=== PATIENT | female | born 1990 | race Hispanic/Latino ===

== ENCOUNTER 2023-06-07 13:36 | Emergency (ER) | payer SELFPAY ==
--- NOTE | 2023-06-07 13:39 | ED.BACK ---
HPI - Back Pain/Injury General Chief Complaint: Back Pain/Injury Stated Complaint: leg pain,back pain,lower abdominal pain left side Time Seen by Provider: 06/07/23 13:39 Source: patient Mode of arrival: ambulatory Limitations: no limitations History of Present Illness HPI Narrative: Estephanie is a 32-year-old female patient presenting to clinic today with complaints of lower abdominal pain, left-sided back pain with pain radiating down the left leg. She reports back pain started 1-2 days ago. States she went to chiropractor and he adjusted her and this helped for only about 20 minutes. 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 No known other injury. Reporting some lower abdominal discomfort however this has been ongoing for a long time. Is currently on her menses. She denies any urinary symptoms. Denies any saddle anesthesia or loss of bowel or bladder. Patient is currently on her menses. Related Data Allergies Allergy/AdvReac Type Severity Reaction Status Date / Time No Known Allergies Allergy Verified 06/07/23 13:52 Review of Systems Review of Systems: Pertinent positives per HPI. Patient denies any fever, chills, rash, headache, visual changes, dizziness, cough, runny nose, sore throat, shortness of breath, chest pain, palpitations, nausea, vomiting, diarrhea, constipation, abdominal pain, or any urinary issues. PMFSH Comments At the time of my signature, I reviewed and agree with the nursing past medical, surgical, social, and family history. There is no relevant family history pertinent to the patient complaint. Exam Narrative: General: Well-developed, well nourished, in no apparent distress Head: Normocephalic, atraumatic. Cardio: Regular rate and rhythm, s1 and s2 normal, no murmur appreciated. Resp: Clear to auscultation bilaterally, no rhonchi, rales, wheezing or rubs. Abdomen: Soft, pliable, bowel sounds present in all quadrants, tender to palpation over the lower abdomen-over her scar, no organomegly, no CVAT tenderness. Had patient bear down and there was no bulge palpable Musculoskeletal: No deformity, tender to palpation over the left lower back/SI joint with pain radiating into the left leg, grossly normal range of motion, muscle strength strong and equal, peripheral pulse strong, no edema, no cyanosis, normal gait and station Course Course Emergency Course: Portions of this record may have been created with voice recognition software. Level of Care: Express Care Visit Vital Signs Vital signs: Vital signs reviewed MDM - Back Pain/Injury MDM Narrative Medical decision making narrative: At the time of visit patient is resting comfortably on the exam table. I suspect patient has chronic lower abdominal pain due to area of her possibly due to adhesions. Also suspect patient has left-sided low back pain SI joint pain with sciatica. UA shows 3+ blood and patient is currently on her menses. Will send in prescription for a Medrol Dosepak and some Flexeril. Supportive measures were discussed with the patient she voiced understanding discharge instructions agrees to treatment plan. Sedation precautions reviewed. Differential Diagnosis Differential diagnosis: Likely lumbar radiculopathy, sciatica, strain of lumbar region, renal colic, pyelonephritis, thoracic back pain, discitis and other (Chronic lower abdominal pain around scar possibly due to adhesions) Discharge Plan Discharge Clinical Impression: Abdominal pain, chronic, bilateral lower quadrant Back pain Qualifiers: Back pain location: low back pain Chronicity: acute Back pain laterality: left Sciatica presence: with sciatica Sciatica laterality: sciatica of left side Qualified Code(s): M54.42 - Lumbago with sciatica, left side Patient Disposition: Home, Self-Care Condition: Stable Instructions: Antibiotic Form, Sciatica (ED), Acute Low Back Pain (ED), Lower Back Exercis
[2023-06-07 13:53] VITALS: BP 125/67; PULSE 86; RESP 18; TEMP 37.2; O2SAT 100
[2023-06-07 14:01] VITALS: BP 125/67; PULSE 86; RESP 18; TEMP 37.2; O2SAT 100
== END 2023-06-07 14:37 | disposition home or self-care (01) ==
PROVIDERS: Emergency Provider Nurse Practitioner Family; PCP Nurse Practitioner Family
DX: G89.29 Other chronic pain (principal); R10.31 Right lower quadrant pain; R10.32 Left lower quadrant pain; M54.42 Lumbago with sciatica, left side
CPT/HCPCS: 81003; 99213; G0463